=== PATIENT | female | born 1950 | race African-American/Black ===

== ENCOUNTER 2017-05-07 11:35 | Emergency (ER) | payer MEDICARE, BC, MEDICAID ==
[~2017-05-07] VITALS: Ht 165.1 cm; Wt 90.7 kg
[~2017-05-07 11:35] MED LIST: Blood Sugar Diagnostic IN; INSU100I19 SQ; INSU100V28 SQ; LEVO200T8 PO; LISI10TA59 PO; METO50TA16 PO
[2017-05-07] MEDS ORDERED: ONDANSETRON HCL/PF 4 MG/2 ML VIAL IVP ONE (12:30)
[2017-05-07] MEDS ORDERED: IV NS 0.9% 1,000 ML BAG IV ONE (12:30)
[2017-05-07 12:41] LABS: BASOPHILS % (AUTO) 0.7 % (0.0-2.0); EOSINOPHILS % (AUTO) 0.2 % (0.0-6.0); HEMATOCRIT 40 % (33-45); HEMOGLOBIN 13.9 g/dL (11.5-14.8); LYMPHOCYTES # (AUTO) 1.4 /CMM (0.8-4.8); LYMPHOCYTES % (AUTO) 21.3 % (20.0-44.0); MEAN CORPUSCULAR HEMOGLOBIN 30 PG (26.0-33.0); MEAN CORPUSCULAR HGB CONC 34 g/dl (31.0-36.0); MEAN CORPUSCULAR VOLUME 87 fL (82-100); MONOCYTES # (AUTO) 0.7 /CMM (0.1-1.30); NEUTROPHILS # (AUTO) 4.6 /CMM (1.8-8.9); NEUTROPHILS % (AUTO) 66.8 % (43.0-81.0); PLATELET COUNT (AUTO) 244 /CMM (150-450); RDW COEFFICIENT OF VARIATION 13.4 (11.5-15.0); RED BLOOD CELL COUNT(AUTO) 4.65 MIL/uL (4.0-5.2); WHITE BLOOD COUNT (AUTO) 6.7 K/uL (4.3-11.0)
[2017-05-07 12:56] LABS: ALANINE AMINOTRANSFERASE 25 U/L (12-78); ALKALINE PHOSPHATASE 128 U/L (46-116); ASPARTATE AMINOTRANSFERASE 20 U/L (15-37); BILIRUBIN,DIRECT 0.1 mg/dL (0.0-0.2); BILIRUBIN,TOTAL 0.5 mg/dL (0.2-1.0); CALCIUM, SERUM 9.3 mg/dL (8.5-10.1); CARBON DIOXIDE 27 mmol/L (21-32); CHLORIDE 100 mmol/L (98-107); CREATININE 1.1 mg/dL (0.6-1.3); LIPASE 186 U/L (73-393); POTASSIUM 3.7 mmol/L (3.5-5.1); SODIUM SERUM 136 mmol/L (136-145); TOTAL PROTEIN, SERUM 8.2 g/dL (6.4-8.2); UREA NITROGEN, BLOOD 18 mg/dL (7-18)
[2017-05-07 12:58] LABS: TROPONIN I < 0.017 ng/mL (0.00-0.056)
[2017-05-07 13:03] LABS: GLUCOSE 368 mg/dL (74-106)
--- NOTE | 2017-05-07 13:43 | NUR ---
ASSISTED TO ED BED 11 VIA WHEELCHAIR FROM THE WAITING ROOM
--- NOTE | 2017-05-07 13:45 | NUR ---
RECIEVED PT AT THIS TIME. PT WAS BB FAMILY: NAUSEA, VOMITING, DIARRHEA, ABD PAIN. NAD VSS RR EVEN AND UNLABORED. KEPT WARM AND COMFORTABLE. PT WAS SEEN AND EVLAUTED BY SONYA ESTRADA. BLOOD DRAWN WHILE PT WAS IN WR
[2017-05-07] MEDS ORDERED: ONDANSETRON HCL/PF 4 MG/2 ML VIAL ONE (13:47)
[2017-05-07] MEDS ORDERED: MORPHINE SULFATE INJ 2 MG/ML DISP.SYRIN IV ONE (14:00)
[2017-05-07] MEDS ORDERED: MORPHINE SULFATE INJ 4 MG/ML DISP.SYRIN ONE (14:07)
[2017-05-07 14:34] LABS: APPEARANCE,URINE Clear (CLEAR); BILIRUBIN,URINE SMALL (NEGATIVE); BLOOD, URINE Moderate Ery/uL (NEGATIVE); KETONES,URINE Trace (NEGATIVE); LEUKOCYTE ESTERASE ,URINE Negative (NEGATIVE); NITRITE, URINE Negative (NEGATIVE); PH,URINE 5.5 (5.0-8.0); PROTEIN,URINE 30 mg/dl (NEGATIVE); UGLUCOSE >=1000 mg/dL (NEGATIVE); UROBILINOGEN,URINE 0.2 EU/dL (0.2)
[2017-05-07 14:37] LABS: COLOR,URINE Dark Yellow (YELLOW)
[2017-05-07 14:53] LABS: BACTERIA,URINE Moderate /HPF (None Seen); RBC,URINE 0-3 /HPF (0-2); SQUAMOUS EPITHELIAL CELL,UR Few /HPF (None Seen); YEAST,URINE Few /HPF (None Seen)
[2017-05-07 16:11] VITALS: BP 139/89
--- NOTE | 2017-05-07 16:11 | NUR ---
Patient discharged to home in stable condition. Written and verbal after care instructions given. Patient verbalizes understanding of instruction.
== END 2017-05-07 16:13 | disposition home or self-care (01) ==
LOC: ER 11:37
DX: R11.2 Nausea with vomiting, unspecified (principal); R19.7 Diarrhea, unspecified; N28.89 Other specified disorders of kidney and ureter; R51 Headache; E11.9 Type 2 diabetes mellitus without complications; I10 Essential (primary) hypertension; M06.9 Rheumatoid arthritis, unspecified; Z79.4 Long term (current) use of insulin
CPT/HCPCS: 36415; 70450-TC; 80048-TC; 80076-TC; 81000-TC; 83690-TC; 84484-TC; 85025-TC; 87086-TC; A4606; J2270; J2405; J7030; Z7610

== ENCOUNTER 2018-05-03 19:20 | Emergency (ER) | payer MEDICARE, MEDICAID ==
[~2018-05-03] VITALS: Ht 165.1 cm; Wt 93.9 kg
--- NOTE | 2018-05-03 19:25 | NUR ---
PATIENT AMBULATORY TO ER BED 10 WITH FAMILY. BIBFAMILY FROM HOME C/O BLURRED VISION IN R EYE X 5 DAYS. DENIES HEAD TRAUMA. PT PLACED ON LATHE HAND. VSS/RESP EVEN UNLABORED/NAD NOTED/SKIN WARM AND DRY/AFEBRILE/DENIES N-V-D/AOX4. AWAITNG MD ARREDONDO.
--- NOTE | 2018-05-03 19:40 | NUR ---
AT BEDSIDE FOR EVAL.
--- NOTE | 2018-05-03 19:53 | NUR ---
PATIENT TO CT VIA STRETCHER. VSS.
--- NOTE | 2018-05-03 20:08 | NUR ---
PATIENT BACK FROM CT.
--- NOTE | 2018-05-03 20:44 | NUR ---
18G IV TO L AC X 1 ATTEMPT USING ASEPTIC TECH, BLOOD HANDED OVER TO THE LAB AT BEDSIDE. IV FLUSHES EASILY WITH NS, NO S/S INFILTRATION NOTED AT THIS TIME.
[2018-05-03 20:47] LABS: BASOPHILS # (AUTO) 0.1 /CMM (0.0-0.2); BASOPHILS % (AUTO) 1.1 % (0.0-2.0); EOSINOPHILS % (AUTO) 3.3 % (0.0-6.0); HEMATOCRIT 42 % (33-45); HEMOGLOBIN 13.9 g/dL (11.5-14.8); LYMPHOCYTES # (AUTO) 2.1 /CMM (0.8-4.8); LYMPHOCYTES % (AUTO) 26.4 % (20.0-44.0); MEAN CORPUSCULAR HGB CONC 33 g/dl (31.0-36.0); MEAN CORPUSCULAR VOLUME 89 fL (82-100); MONOCYTES # (AUTO) 0.5 /CMM (0.1-1.30); MONOCYTES % (AUTO) 6.5 % (2.0-12.0); NEUTROPHILS # (AUTO) 4.9 /CMM (1.8-8.9); NEUTROPHILS % (AUTO) 62.7 % (43.0-81.0); PLATELET COUNT (AUTO) 246 /CMM (150-450); RED BLOOD CELL COUNT(AUTO) 4.72 MIL/uL (4.0-5.2); WHITE BLOOD COUNT (AUTO) 7.8 K/uL (4.3-11.0)
--- NOTE | 2018-05-03 20:49 | NUR ---
PATIENT AMBULATORY TO RESTROOM WITH STEADY GAIT.
--- NOTE | 2018-05-03 20:51 | NUR ---
URINE SPECIMEN OBTAINED AND SENT TO THE LAB.
[2018-05-03] MEDS ORDERED: ONDANSETRON HCL/PF 4 MG/2 ML VIAL IV ONE (21:00)
[2018-05-03] MEDS ORDERED: MORPHINE SULFATE INJ 2 MG/ML DISP.SYRIN IV ONE (21:00)
[2018-05-03 21:03] LABS: CALCIUM, SERUM 9.5 mg/dL (8.5-10.1); CREATININE 1.2 mg/dL (0.6-1.3); POTASSIUM 3.7 mmol/L (3.5-5.1)
[2018-05-03] MEDS ORDERED: ONDANSETRON HCL/PF 4 MG/2 ML VIAL ONE (21:03)
[2018-05-03] MEDS ORDERED: MORPHINE SULFATE INJ 4 MG/ML DISP.SYRIN ONE (21:04)
[2018-05-03] MEDS ORDERED: IOHEXOL-350 100 ML VIAL IV ONE (21:18)
[2018-05-03] MEDS ORDERED: CT SWABBABLE VALVE TRANS SET 1 EA INFUS.SET MC ONE (21:18)
[2018-05-03] MEDS ORDERED: IV NS 0.9% 250 ML IV ONE (21:18)
--- NOTE | 2018-05-03 21:25 | NUR ---
PATIENT TO CT VIA STRETCHER, VSS.
--- NOTE | 2018-05-03 21:45 | NUR ---
PATIENT BACK FROM CT.
--- NOTE | 2018-05-03 22:30 | NUR ---
PATCH PLACED OVER R EYE PER MD ORDERS.
--- NOTE | 2018-05-03 23:41 | NUR ---
IV removed. Catheter intact and site benign. Pressure and 4x4 applied to site. No bleeding noted. Patient discharged to home in stable condition. Written and verbal after care instructions given. Patient verbalizes understanding of instruction. Patient ambulatory with a steady gait.
[2018-05-03 23:43] VITALS: BP 162/84
== END 2018-05-03 23:44 | disposition home or self-care (01) ==
LOC: ER 19:22
DX: H49.01 Third [oculomotor] nerve palsy, right eye (principal); I10 Essential (primary) hypertension; E11.9 Type 2 diabetes mellitus without complications; R51 Headache; Z79.4 Long term (current) use of insulin
CPT/HCPCS: 36415; 70450; 70480; 70496; 80048; 85025; 85730; 96374; 96375; 99284; A4606; J2270; J2405; J7050; Q9967

== ENCOUNTER 2022-09-27 22:53 | Inpatient (IN) | payer MEDICARE, OTHER ==
[~2022-09-27] VITALS: Ht 167.6 cm; Wt 88.5 kg
[~2022-09-27 22:53] MED LIST changes: +LISI10TA30 PO; -LISI10TA59 PO
--- NOTE | 2022-09-27 23:21 | NUR ---
BIBDAUGHTER FROM HOME C/O N/V, WEAKNESS, CONFUSION X1 DAY. BG 400 AT HOME. PT AAOX4, BUT SLOW TO ANSWER. VITALS CHECKED. DTR AT BEDSIDE.
[2022-09-27] MEDS ORDERED: ONDANSETRON HCL/PF 4 MG/2 ML VIAL IVP ONE (23:30)
[2022-09-27] MEDS ORDERED: IV NS 0.9% 1,000 ML BAG IV ONE (23:30)
[2022-09-27] MEDS ORDERED: INSULIN REGULAR, HUMAN 100 UNIT/ML 10 ML VIAL IV ONE (23:30)
[2022-09-27] MEDS ORDERED: IV NS 0.9% 500 ML BAG IV ONE (23:30)
[2022-09-27] MEDS ORDERED: ONDANSETRON HCL/PF 4 MG/2 ML VIAL ONE (23:33)
--- NOTE | 2022-09-27 23:33 | NUR ---
20GA LEFT AC ESTABLISHED Addendum: 09/28/22 at 0011 by YEE 20GA LEFT HAND ESTABLISHED
--- NOTE | 2022-09-27 23:35 | NUR ---
BLOOD COLLECTED, SENT TO LAB
--- NOTE | 2022-09-27 23:35 | NUR ---
EKG DONE AT BEDSIDE
--- NOTE | 2022-09-27 23:36 | NUR ---
NAUSEA & VOMITING X2 WITH BROWN-COLORED EMESIS
--- NOTE | 2022-09-27 23:38 | NUR ---
XR AT BEDSIDE
--- NOTE | 2022-09-27 23:45 | NUR ---
URINE COLLECTED, SENT TO LAB
[2022-09-27 23:54] LABS: BASOPHILS # (AUTO) 0.1 K/uL (0.0-0.2); BASOPHILS % (AUTO) 0.3 % (0.0-2.0); HEMATOCRIT 39 % (33-45); HEMOGLOBIN 12.1 g/dL (11.5-14.8); LYMPHOCYTES # (AUTO) 1.3 K/uL (0.8-4.8); LYMPHOCYTES % (AUTO) 6.6 % (20.0-44.0); MEAN CORPUSCULAR HGB CONC 31 g/dl (31.0-36.0); MEAN CORPUSCULAR VOLUME 96 fL (82-100); MONOCYTES # (AUTO) 0.8 K/uL (0.1-1.30); MONOCYTES % (AUTO) 4.1 % (2.0-12.0); NEUTROPHILS # (AUTO) 18.3 K/uL (1.8-8.9); PLATELET COUNT (AUTO) 337 K/uL (150-450); RED BLOOD CELL COUNT(AUTO) 4.13 MIL/uL (4.0-5.2); WHITE BLOOD COUNT (AUTO) 20.5 K/uL (4.3-11.0)
[2022-09-28] VITALS (17 sets, daily range): BP systolic 97–171; BP diastolic 39–143
[2022-09-28 00:01] LABS: ALANINE AMINOTRANSFERASE 19 U/L (12-78); ALBUMIN 3.4 g/dL (3.4-5.0); ALKALINE PHOSPHATASE 153 U/L (46-116); ASPARTATE AMINOTRANSFERASE 6 U/L (15-37); BILIRUBIN,DIRECT 0.2 mg/dL (0.0-0.2); BILIRUBIN,TOTAL 0.8 mg/dL (0.2-1.0); CALCIUM, SERUM 10.3 mg/dL (8.5-10.1); CARBON DIOXIDE 21 mmol/L (21-32); CHLORIDE 85 mmol/L (98-107); CREATININE 2.9 mg/dL (0.6-1.3); POTASSIUM 4.5 mmol/L (3.5-5.1); SODIUM SERUM 133 mmol/L (136-145); TOTAL PROTEIN, SERUM 8.7 g/dL (6.4-8.2); UREA NITROGEN, BLOOD 72 mg/dL (7-18)
[2022-09-28 00:03] LABS: GLUCOSE 1146 mg/dL (74-106)
--- NOTE | 2022-09-28 00:03 | NUR ---
CRITICAL LAB: SERUM GLUCOSE [id number]. NOTIFIED.
--- NOTE | 2022-09-28 00:08 | NUR ---
ASUNCION/ALEXIS [phone]
[2022-09-28] MEDS ORDERED: IV NS 0.9% 1,000 ML BAG IV ONE (00:30)
[2022-09-28 00:43] LABS: BILIRUBIN,URINE 1+ (NEGATIVE); COLOR,URINE YELLOW (YELLOW); LEUKOCYTE ESTERASE ,URINE NEGATIVE (NEGATIVE); NITRITE, URINE NEGATIVE (NEGATIVE); PH,URINE 5.5 (5.0-8.0); PROTEIN,URINE NEGATIVE (NEGATIVE); UGLUCOSE 3+ mg/dL (NEGATIVE); UROBILINOGEN,URINE 0.2 EU/dL (0.2)
--- NOTE | 2022-09-28 00:45 | NUR ---
RT AT BEDSIDE FOR ABG
[2022-09-28] MEDS ORDERED: INSULIN REGULAR, HUMAN 100 UNIT/ML 10 ML VIAL ONE (00:47)
[2022-09-28 00:55] LABS: ABG BASE EXCESS -11.1 mmol/L; ABG PCO2 43.7 mmHg (35.0-45.0); ABG PH 7.197 (7.350-7.450); ABG PO2 83.5 mmHg (75.0-100.0); COHb 0.1 % (0.5-1.5); MetHb 0.4 % (0.0-1.5); O2Hb 93.5 % (94.0-97.0); SITE, ABG Right Radial; VENT MODE, BG 2 LNC
--- NOTE | 2022-09-28 00:59 | NUR ---
COVID SWAB COLLECTED, SENT TO LAB
[2022-09-28] MEDS ORDERED: INSULIN REGULAR, HUMAN 100 UNIT in IV NS 0.9% 99 ML IV PRN ×4 (01:00→02:30)
--- NOTE | 2022-09-28 01:05 | NUR ---
INSULIN GTT INITIATED AT RATE OF 5 UNITS/HR
[2022-09-28] MEDS ORDERED: MAG HYDROX/AL HYDROX/SIMETH 30 ML UDC PO PRN (02:30)
[2022-09-28] MEDS ORDERED: Z GUARD REMEDY 4 OZ OINT TP PRN (02:30)
[2022-09-28] MEDS ORDERED: ACETAMINOPHEN 325 MG TABLET PO PRN (02:30)
[2022-09-28] MEDS ORDERED: IV NS 0.9% 1,000 ML IV PRN (02:30)
[2022-09-28] MEDS ORDERED: hydrALAZINE HCL IV 20 MG VIAL IV PRN (02:30)
[2022-09-28] MEDS ORDERED: ONDANSETRON HCL/PF 4 MG/2 ML VIAL IVP PRN (02:30)
[2022-09-28 02:31] LABS: BACTERIA,URINE Rare /HPF (None Seen); RBC,URINE 0-2 /HPF (0-2); SQUAMOUS EPITHELIAL CELL,UR Few /HPF (None Seen); WBC,URINE 0-2 /HPF (0-3)
[2022-09-28 02:54] LABS: BASOPHILS % (MANUAL) 0 % (0.0-2.0); EOSINOPHILS % (MANUAL) 0 % (0-4); LYMPHOCYTES % (MANUAL) 9 % (16-48); MONOCYTES % (MANUAL) 5 % (0-11.0); NEUTROPHILS % (MANUAL) 86 (42-76)
--- NOTE | 2022-09-28 03:00 | NUR ---
INSULIN GTT ADJUSTED TO 6 UNITS/HR PER ALGORITHM #1.
--- NOTE | 2022-09-28 04:01 | NUR ---
TOEING STOCKINGS AT PT'S BEDSIDE
[2022-09-28 04:23] LABS: BASOPHILS # (AUTO) 0.1 K/uL (0.0-0.2); BASOPHILS % (AUTO) 0.2 % (0.0-2.0); HEMATOCRIT 38 % (33-45); HEMOGLOBIN 12.1 g/dL (11.5-14.8); LYMPHOCYTES # (AUTO) 1.6 K/uL (0.8-4.8); LYMPHOCYTES % (AUTO) 6.5 % (20.0-44.0); MEAN CORPUSCULAR HGB CONC 32 g/dl (31.0-36.0); MEAN CORPUSCULAR VOLUME 92 fL (82-100); MONOCYTES # (AUTO) 1.1 K/uL (0.1-1.30); MONOCYTES % (AUTO) 4.5 % (2.0-12.0); NEUTROPHILS # (AUTO) 22.4 K/uL (1.8-8.9); NEUTROPHILS % (AUTO) 88.8 % (43.0-81.0); PLATELET COUNT (AUTO) 308 K/uL (150-450); RED BLOOD CELL COUNT(AUTO) 4.11 MIL/uL (4.0-5.2); WHITE BLOOD COUNT (AUTO) 25.2 K/uL (4.3-11.0)
[2022-09-28 04:40] LABS: CREATININE 2.4 mg/dL (0.6-1.3); MAGNESIUM 2.3 mg/dL (1.8-2.4); PHOSPHORUS 4.4 mg/dL (2.5-4.9); POTASSIUM 4.2 mmol/L (3.5-5.1)
--- NOTE | 2022-09-28 04:42 | NUR ---
GLUCOSE 754 REPORTED BY LAB. VICTORINO RAY
[2022-09-28 05:08] LABS: THYROID STIMULATING HORMONE 0.406 uIU/mL (0.358-3.74)
--- NOTE | 2022-09-28 05:26 | NUR ---
EWEL=[id number]
--- NOTE | 2022-09-28 06:00 | NUR ---
2ND PERIPHERAL IV ESTABLISHED: 18GA LEFT AC
--- NOTE | 2022-09-28 06:12 | NUR ---
RQQD=[id number]
--- NOTE | 2022-09-28 07:39 | NUR ---
BG 427. MADE AWARE
--- NOTE | 2022-09-28 08:00 | NUR ---
room assigned. going to 261. admitting aware.
--- NOTE | 2022-09-28 08:15 | NUR ---
ROOM 256
--- NOTE | 2022-09-28 08:58 | NUR ---
PT ARRIVED IN ICU TO ROOM 256. PT LETHARGIC YET FOLLOWS COMMANDS. PT ON INSULIN GTT, DKA PROTOCOL. PT ON ROOM AIR AT THIS TIME. PT WAS ABLE TO MOVE FROM GURNEY TO BED BY SELF WITHOUT DIFFICULTY. PT CHECKED ON HOURLY AND PRN BY NURSING STAFF.
[2022-09-28] MEDS ORDERED: AMLODIPINE BESYLATE 10 MG TABLET PO SCH (09:00)
--- NOTE | 2022-09-28 09:11 | NUR ---
INSULIN RUNNING AT 5UNITS/HOUR ENDORSED TO ICU NURSE TO BE TITRATED PER PROTOCOL.
--- NOTE | 2022-09-28 09:12 | NUR ---
MOVED TO ICU ROOM SAFELY PER ACLS PROTOCOL
[2022-09-28 09:48] LABS: CALCIUM, SERUM 9.8 mg/dL (8.5-10.1); CREATININE 2.2 mg/dL (0.6-1.3); POTASSIUM 3.9 mmol/L (3.5-5.1)
[2022-09-28] MEDS ORDERED: METH2.5T14 PO (10:03)
[2022-09-28] MEDS ORDERED: HYDR25TA4 PO (10:03)
[2022-09-28] MEDS ORDERED: AMLO-213 PO (10:03)
[2022-09-28] MEDS ORDERED: INSU100V7 SQ (10:03)
[2022-09-28] MEDS ORDERED: LOSA100T31 PO (10:03)
[2022-09-28] MEDS ORDERED: OXYC15TA2 PO (10:03)
[2022-09-28] MEDS ORDERED: INSU100I14 SQ (10:03)
[2022-09-28] MEDS ORDERED: CETI10TA14 PO (10:03)
[2022-09-28] MEDS ORDERED: FOLI0.4T6 PO (10:03)
[2022-09-28] MEDS ORDERED: GABA600T12 PO (10:03)
[2022-09-28] MEDS: LEVOTHYROXINE SODIUM 125 MCG TABLET PO SCH (10:59)
[2022-09-28] MEDS: PANTOPRAZOLE 40 MG VIAL IV SCH (11:00)
[2022-09-28] MEDS: BLOOD SUGAR DIAGNOSTIC 1 EACH STRIP IN SCH ×5 (11:00→14:53)
[2022-09-28] MEDS: HEPARIN SODIUM, PORCINE 5000 UNITS/1 ML VIAL SQ SCH ×2 (11:04→20:49)
[2022-09-28] MEDS: IV NS 0.9% 1,000 ML IV PRN ×2 (11:24→14:53)
[2022-09-28] MEDS ORDERED: oxyCODONE IR immediate release 5 MG PO PRN (11:30)
[2022-09-28] MEDS: GABAPENTIN 300 MG CAPSULE PO SCH ×2 (12:40→17:31)
[2022-09-28 13:13] LABS: CALCIUM, SERUM 9.8 mg/dL (8.5-10.1); CREATININE 2.1 mg/dL (0.6-1.3); POTASSIUM 3.7 mmol/L (3.5-5.1)
[2022-09-28] MEDS ORDERED: DEXTROSE 50%-WATER 50 ML DISP.SYRIN IV PRN (15:30)
[2022-09-28] MEDS: BLOOD SUGAR DIAGNOSTIC 1 EACH STRIP VI SCH ×2 (17:28→22:06)
[2022-09-28] MEDS: IV 1/2NS 1000 ML 1,000 ML IV PRN (17:29)
[2022-09-28] MEDS: INSULIN REGULAR, HUMAN 100 UNIT/ML 3 ML VIAL SQ PRN (17:33)
--- NOTE | 2022-09-28 19:16 | NUR ---
END OF SHIFT NOTE: ANION GAP CLOSED TODAY, INSULIN GTT DC'D PER MD ORDERS. PT IS LETHARGIC BUT FOLLOWS COMMANDS. PT IS 1-2 ASSIST TO BEDSIDE COMMODE. PT CHECKED ON HOURLY AND PRN BY NURSING STAFF.
--- NOTE | 2022-09-28 20:36 | NUR ---
ELECTROPHONIC ENGINEER PT REMOVED NASAL CANNUALA; NOTED SATURATION TO 87-88%; EDUCATED PT ON THE NEED TO LEAVE NASAL CANNULA ON.
[2022-09-28] MEDS ORDERED: ZOLPIDEM TARTRATE 5 MG TABLET PO PRN (22:00)
[2022-09-28] MEDS ORDERED: MAGNESIUM HYDROXIDE 30 ML UDC PO PRN (22:00)
[2022-09-28] MEDS: *INSULIN REGULAR(HUMULIN R)HUM 100 UNIT/ML VIAL SQ PRN (22:09)
[2022-09-28] MEDS: INSULIN GLARGINE, 100 UNIT/ML CARTRIDGE SQ SCH (22:11)
--- NOTE | 2022-09-28 23:13 | NUR ---
OFFICE MESSENGER HELPER UPDATE GIVEN TO DAUGHTER ALEXIS.
[2022-09-29] VITALS (20 sets, daily range): BP systolic 100–158; BP diastolic 47–106
[2022-09-29] MEDS: IV 1/2NS 1000 ML 1,000 ML IV PRN ×2 (03:10→15:59)
[2022-09-29 05:41] LABS: BASOPHILS # (AUTO) 0.1 K/uL (0.0-0.2); BASOPHILS % (AUTO) 0.3 % (0.0-2.0); HEMATOCRIT 35 % (33-45); HEMOGLOBIN 11.5 g/dL (11.5-14.8); LYMPHOCYTES # (AUTO) 1.9 K/uL (0.8-4.8); LYMPHOCYTES % (AUTO) 8.5 % (20.0-44.0); MEAN CORPUSCULAR HGB CONC 33 g/dl (31.0-36.0); MEAN CORPUSCULAR VOLUME 90 fL (82-100); MONOCYTES # (AUTO) 1.2 K/uL (0.1-1.30); MONOCYTES % (AUTO) 5.5 % (2.0-12.0); NEUTROPHILS # (AUTO) 19.1 K/uL (1.8-8.9); NEUTROPHILS % (AUTO) 85.7 % (43.0-81.0); PLATELET COUNT (AUTO) 269 K/uL (150-450); WHITE BLOOD COUNT (AUTO) 22.3 K/uL (4.3-11.0)
[2022-09-29 05:49] LABS: CALCIUM, SERUM 9.3 mg/dL (8.5-10.1); CREATININE 1.7 mg/dL (0.6-1.3); MAGNESIUM 2.2 mg/dL (1.8-2.4); PHOSPHORUS 2.1 mg/dL (2.5-4.9); POTASSIUM 3.6 mmol/L (3.5-5.1)
[2022-09-29] MEDS ORDERED: LEVOTHYROXINE SODIUM 125 MCG PO SCH (07:30)
[2022-09-29] MEDS: LEVOTHYROXINE SODIUM 125 MCG TABLET PO SCH (07:58)
[2022-09-29] MEDS: BLOOD SUGAR DIAGNOSTIC 1 EACH STRIP VI SCH ×4 (07:58→21:13)
[2022-09-29] MEDS: PANTOPRAZOLE 40 MG VIAL IV SCH (08:25)
[2022-09-29] MEDS: AMLODIPINE BESYLATE 10 MG TABLET PO SCH (08:26)
[2022-09-29] MEDS: GABAPENTIN 300 MG CAPSULE PO SCH ×3 (08:26→17:47)
[2022-09-29] MEDS: HEPARIN SODIUM, PORCINE 5000 UNITS/1 ML VIAL SQ SCH ×2 (08:27→20:52)
[2022-09-29] MEDS: INSULIN REGULAR, HUMAN 100 UNIT/ML 3 ML VIAL SQ PRN ×3 (08:30→17:48)
[2022-09-29] MEDS: POTASSIUM PHOSPHATE MM 7.5 MMOL in IV NS 0.9% 100 ML IV SCH ×2 (09:14→12:23)
[2022-09-29] MEDS: CEFTRIAXONE 1 G in IV D5W 50 ML IV SCH (11:09)
[2022-09-29] MEDS: MENTHOL/CETYLPYRD (CEPACOL) 1 LOZ LOZENGE PO PRN ×2 (14:53→18:21)
--- NOTE | 2022-09-29 19:00 | NUR ---
RN notes: pt transferred to med surg unit room 313-1 in stable condition, iv running 1/2 ns at 100 ml/hr, continue on O2 at 2 l/min, denies SOB, report given to Mariana TIMMONS, called daughter Alejandra updated her about pt condition and transfer
--- NOTE | 2022-09-29 19:30 | NUR ---
MS AGED OR DISABLED CARE WORKER NOTE RECEIVED REPORT FROM OUTGOING RN HAILEY. PATIENT TRANSFERRED FROM ICU AND ARRIVED TO THE UNIT AT AROUND 1900 VIA STRETCHER, ACCOMPANIED BY 2 ICU NURSE. PATIENT IS ALERT AND ORIENTED X4 BUT SLIGHTLY LETHARGIC. ABLE TO MAKE NEEDS KNOWN. AFEBRILE AND NOT IN ANY FORM OF ACUTE DISTRESS. ON O2 INHALATION VIA NASAL CANNULA AT 2LPM. EXPLAINED ADMISSION PROCESS WHICH INCLUDES SKIN ASSESSMENT AND BELONGINGS CHECKED WHICH THE PATIENT AGREED. SKIN IS INTACT. WITH IV ACCESS ON LAC 18G RUNNING WITH 1/2NS AT 100ML/HR. SAFETY MEASURES IN PLACE. KEPT BED IN LOCKED AND IN LOW POSITION. SIDE RAILS UP X2. ADVISED TO USE THE CALL LIGHT WHEN IN NEED OF ASSISTANCE.
[2022-09-29] MEDS: INSULIN GLARGINE, 100 UNIT/ML CARTRIDGE SQ SCH (21:17)
[2022-09-29] MEDS: *INSULIN REGULAR(HUMULIN R)HUM 100 UNIT/ML VIAL SQ PRN (21:19)
[2022-09-30] MEDS: IV 1/2NS 1000 ML 1,000 ML IV PRN ×2 (01:35→16:15)
[2022-09-30] MEDS: INSULIN REGULAR, HUMAN 100 UNIT/ML 3 ML VIAL SQ PRN ×3 (06:01→17:07)
--- NOTE | 2022-09-30 06:15 | NUR ---
MS RN NOTE CHECKED PATIENT'S BG 448. ADMINISTERED INSULIN PER SLIDING SCALE. CN NOTIFIED. WILL RECHECKED AFTER HALF AN HOUR. PATIENT REMAINS ALERT AND ORIENTED AND NOT IN ANY FORM OF ACUTE DISTRESS. PATIENT REFUSED TO HAVE DINNER LAST NIGHT BUT ASKED FOR SNACKS AT AROUND 0400.
--- NOTE | 2022-09-30 06:40 | NUR ---
MS RN CLOSING NOTE PATIENT IN BED, WITH HOB ELEVATED, AWAKE, ALERT AND ORIENTED X4. MORE ALERT THAN LAST NIGHT. ABLE TO MAKE NEEDS KNOWN. AFEBRILE AND NOT IN ANY FORM OF ACUTE DISTRESS. ON O2 INHALATION VIA NASAL CANNULA AT 2LPM. WITH IV ACCESS ON LAC 18G RUNNING WITH 1/2NS AT 100ML/HR. MONITORED FOR ANY S/SX. OF HYPO/HYPERGLYCEMIA. MEDICATED ORDERED. OFFERED AND ENCOURAGED FLUIDS TOLERATED. SAFETY MEASURES IN PLACE. KEPT BED IN LOCKED AND IN LOW POSITION. SIDE RAILS UP X2. ADVISED TO USE THE CALL LIGHT WHEN IN NEED OF ASSISTANCE. ALL NURSING NEEDS ATTENDED. ENDORSED TO INCOMING SHIFT FOR CONTINUITY OF CARE.
[2022-09-30] MEDS: BLOOD SUGAR DIAGNOSTIC 1 EACH STRIP VI SCH ×4 (06:53→22:07)
[2022-09-30 06:56] LABS: BASOPHILS % (AUTO) 0.4 % (0.0-2.0); EOSINOPHILS % (AUTO) 0.5 % (0.0-6.0); HEMATOCRIT 34 % (33-45); LYMPHOCYTES # (AUTO) 1.5 K/uL (0.8-4.8); LYMPHOCYTES % (AUTO) 21.1 % (20.0-44.0); MEAN CORPUSCULAR HGB CONC 33 g/dl (31.0-36.0); MEAN CORPUSCULAR VOLUME 94 fL (82-100); MONOCYTES # (AUTO) 0.6 K/uL (0.1-1.30); MONOCYTES % (AUTO) 8.7 % (2.0-12.0); NEUTROPHILS % (AUTO) 69.3 % (43.0-81.0); PLATELET COUNT (AUTO) 209 K/uL (150-450); RED BLOOD CELL COUNT(AUTO) 3.61 MIL/uL (4.0-5.2); WHITE BLOOD COUNT (AUTO) 7.2 K/uL (4.3-11.0)
--- NOTE | 2022-09-30 06:56 | NUR ---
MS RN NOTE RECHECKED BG AFTER 30 MINS- 410. CN NOTIFIED ABOUT THE LATEST BG LEVEL AND INFORMED THAT 15 UNITS OF REGULAR INSULIN WAS GIVEN PER SLIDING SCALE. PATIENT REMAINS ASYMPTOMATIC AND ALERT. ABLE TO ANSWER QUESTIONS CORRECTLY. ENDORSED TO INCOMING NURSE FOR CONTINUITY OF CARE.
--- NOTE | 2022-09-30 07:30 | NUR ---
MS RN NOTE RECHECKED BG AGAIN AND IT WENT DOWN TO 390. ENDORSED TO NURSE ESTRELLA FOR CONTINUITY OF CARE. PATIENT REMAINS ASYMPTOMATIC AND ALERT.
--- NOTE | 2022-09-30 07:35 | NUR ---
OPENING NOTE PATIENT IS AWAKE A/Ox4 ON 2L VIA NC WITH NO S/S OF SOB OR DISTRESS. IV ACCESS LAC G18 AND L HAND 20G INTACT PATIENT, FLUSHING WELL. PATIENT SKIN IS INTACT AND NO EDEMA PRESENT AT THIS TIME. CLEAR BILATERAL LUNG SOUNDS AND ACTIVE BOWEL SOUNDS, NO ABDOMINAL TENDERNESS. BG FOLLOW UP WAS DONE BY BASEBALL PLAYER NURSE, TRENDING DOWN 390/BG. PATIENT HAS NO PAIN. FALL AND SAFETY PRECAUTION IN PLACE, BED LOCKED AND AT THE LOWEST POSITION, SRx2, CALL LIGHT WITHIN REACH.
[2022-09-30 08:31] VITALS: BP 135/76
[2022-09-30] MEDS: HEPARIN SODIUM, PORCINE 5000 UNITS/1 ML VIAL SQ SCH ×2 (08:40→21:16)
[2022-09-30] MEDS: LEVOTHYROXINE SODIUM 125 MCG TABLET PO SCH (08:43)
[2022-09-30] MEDS: GABAPENTIN 300 MG CAPSULE PO SCH ×3 (08:43→16:37)
[2022-09-30] MEDS: AMLODIPINE BESYLATE 10 MG TABLET PO SCH (08:45)
[2022-09-30] MEDS: PANTOPRAZOLE 40 MG TABLET.DR PO SCH (08:46)
[2022-09-30 09:35] LABS: CALCIUM, SERUM 8.9 mg/dL (8.5-10.1); CREATININE 1.5 mg/dL (0.6-1.3); POTASSIUM 3.6 mmol/L (3.5-5.1)
[2022-09-30 09:48] LABS: MAGNESIUM 2.2 mg/dL (1.8-2.4); PHOSPHORUS 1.6 mg/dL (2.5-4.9)
--- NOTE | 2022-09-30 09:54 | NUR ---
CRITICAL LAB CRITICAL LAB REPORTED BY SHALINI, FROM LAB. GB 366. CRITICAL LAB REPORTED TO DR. VILLALOBOS.
[2022-09-30] MEDS: CEFTRIAXONE 1 G in IV D5W 50 ML IV SCH (10:43)
[2022-09-30] MEDS: POTASSIUM PHOSPHATE MM 7.5 MMOL in IV NS 0.9% 100 ML IV SCH ×2 (12:48→16:39)
--- NOTE | 2022-09-30 12:51 | NUR ---
MEDICATION NOTE LATE POTASSIUM PHOSPHATE ADMINISTRATION, LATE DELIVERY.
[2022-09-30 15:58] VITALS: BP 127/69
--- NOTE | 2022-09-30 16:42 | NUR ---
MEDICATION NOTE POTASSIUM PHOSPHATE PRIOR ADMINISTRATION RUNNING LATE, CAUSING THE 2 BAG TO BE ADMINISTERED LATE. GAVE SECOND BAG ONCE FIRST BAG WAS DONE INFUSING.
--- NOTE | 2022-09-30 19:04 | NUR ---
CLOSING NOTE PATIENT IS AWAKE, IN BED RESTING A/Ox3 ON 2L VIA NC WITH NO S/S OF SOB OR DISTRESS. IV ACCESS LAC G18 REMOVED PER PATIENT / FAMILY REQUEST. L HAND 20G REMAIN INTACT PATIENT, FLUSHING WELL. PATIENT HAS NO PAIN. MEDICATION ADMINISTERED ORDERED/ PER PATIENT STATUS. PATIENT VOIDED X3, 1 BM, DURING SHIFT. PATIENT DAUGHTER REQUESTED TO SPEAK TO DR. DIXON NUMBER WAS GIVEN. DAUGHTER EXPRESSING CONCERNS ABOUT PATIENT MEMORY. PATIENT HAD EPISODE OF CONFUSING DURING SHIFT, NEEDED RE-ORIENTATION AFTER A 2 HR NAP. DISCUSSED WITH CHARGE NURSE. PATIENT REMAINS STABLE AT THIS TIME. FALL AND SAFETY PRECAUTION MAINTAINED, BED LOCKED AND AT THE LOWEST POSITION, SRx2, CALL LIGHT WITHIN REACH.
--- NOTE | 2022-09-30 19:20 | NUR ---
MSRN DAUGHTER AT BEDSIDE, FULLY AWAKE, SLIGHTLY NAUSEATED. TRYING TO EAT FOOD BROUGHT BY DAUGHTER. INSTRUCTED TO HOLD FOOD FOR NOW IF CONTINOUSLY NAUSEATED. PRESENT IVF INFUSING WELL VIA LEFT FA 20 GAUGE. TO CONTINUE
[2022-09-30 20:00] VITALS: BP 144/67
--- NOTE | 2022-09-30 20:27 | NUR ---
MSRN ASSISTED TO BSC, VOIDED FREELY. NO SOB. 02 MAINTAINED. NO N/V. TOLERATE FOOD BROUGHT BY DAUGHTER. KEPT COMFORTABLE.
[2022-09-30] MEDS: INSULIN GLARGINE, 100 UNIT/ML CARTRIDGE SQ SCH (22:27)
[2022-09-30] MEDS: *INSULIN REGULAR(HUMULIN R)HUM 100 UNIT/ML VIAL SQ PRN (22:31)
--- NOTE | 2022-10-01 06:00 | NUR ---
MSRN GOOD URINE OUTPUT, 1,500 CC. PRESENT IVF CONTINUED.
[2022-10-01 06:24] LABS: BASOPHILS % (AUTO) 0.4 % (0.0-2.0); EOSINOPHILS % (AUTO) 1.2 % (0.0-6.0); HEMATOCRIT 34 % (33-45); HEMOGLOBIN 11.3 g/dL (11.5-14.8); LYMPHOCYTES # (AUTO) 1.8 K/uL (0.8-4.8); LYMPHOCYTES % (AUTO) 25.4 % (20.0-44.0); MEAN CORPUSCULAR HGB CONC 34 g/dl (31.0-36.0); MEAN CORPUSCULAR VOLUME 90 fL (82-100); MONOCYTES # (AUTO) 0.7 K/uL (0.1-1.30); MONOCYTES % (AUTO) 9.9 % (2.0-12.0); NEUTROPHILS # (AUTO) 4.4 K/uL (1.8-8.9); NEUTROPHILS % (AUTO) 63.1 % (43.0-81.0); PLATELET COUNT (AUTO) 201 K/uL (150-450); RED BLOOD CELL COUNT(AUTO) 3.72 MIL/uL (4.0-5.2)
[2022-10-01 06:31] LABS: CALCIUM, SERUM 8.7 mg/dL (8.5-10.1); POTASSIUM 3.7 mmol/L (3.5-5.1)
[2022-10-01 06:34] LABS: MAGNESIUM 1.9 mg/dL (1.8-2.4); PHOSPHORUS 1.8 mg/dL (2.5-4.9)
[2022-10-01] MEDS: BLOOD SUGAR DIAGNOSTIC 1 EACH STRIP VI SCH ×2 (06:35→12:41)
[2022-10-01] MEDS: MENTHOL/CETYLPYRD (CEPACOL) 1 LOZ LOZENGE PO PRN (06:35)
[2022-10-01] MEDS: IV 1/2NS 1000 ML 1,000 ML IV PRN (06:35)
--- NOTE | 2022-10-01 06:45 | NUR ---
MSRN SORETHROAT, CEPACOL GIVEN. BS TODAY 190. STATED FELT BETTER THIS TIME.
--- NOTE | 2022-10-01 07:44 | NUR ---
MS RN OPENING NOTE Patient in bed, awake. A/O x 3, able to make needs known. On O2 at 2 LPM via NC, no SOB or s/s of distress noted. IV access on LFA #20 infusing 1/2 NS at 100 ml/hr. Patient denies any pain or discomfort at this time. Safety precautions in place: bed in low, locked position; siderails up x 2; call light within reach. Will continue to monitor.
[2022-10-01 08:00] VITALS: BP 139/75
[2022-10-01 08:12] VITALS: BP 139/75
[2022-10-01] MEDS: GABAPENTIN 300 MG CAPSULE PO SCH ×2 (08:12→12:37)
[2022-10-01] MEDS: PANTOPRAZOLE 40 MG TABLET.DR PO SCH (08:12)
[2022-10-01] MEDS: AMLODIPINE BESYLATE 10 MG TABLET PO SCH (08:12)
[2022-10-01] MEDS: LEVOTHYROXINE SODIUM 125 MCG TABLET PO SCH (08:12)
[2022-10-01] MEDS: HEPARIN SODIUM, PORCINE 5000 UNITS/1 ML VIAL SQ SCH (08:14)
[2022-10-01] MEDS: CEFTRIAXONE 1 G in IV D5W 50 ML IV SCH (11:23)
[2022-10-01] MEDS: INSULIN REGULAR, HUMAN 100 UNIT/ML 3 ML VIAL SQ PRN (12:40)
[2022-10-01] MEDS ORDERED: K PHOS NEUTRAL 250 MG TABLET PO ONE (16:00)
--- NOTE | 2022-10-01 16:00 | NUR ---
RECIEVED ORDER FOR DISCHARGE. PATIENT IS A/O X4, ABLE TO MAKE NEEDS KNOWN. STABLE ON ROOM AIR, NO SOB OR RESPIRATORY DISTRESS NOTED. DISCHRAGE INSTRUCTIONS GIVEN, PATIENT VERBALIZED UNDERSTANDING, ALL BELONGINGS ACCOUNTED FOR, BELONGING SHEET SIGNED. IV ACCESS REMOVED, CATHETER TIP INTACT, PRESSURE DRESSING APPLIED. EXITCARE FOLDER GIVEN TO PATIENT. PATIENT LEFT IN STABLE CONDITION, WHEELED PATIENT TO EXIT VIA WHEELCHAIR. PATIENT LEFT WITH HER DAUGHTER VIA PRIVATE CAR.
--- NOTE | 2022-10-01 16:01 | NUR ---
RN NOTE PT HAS TO RECIVE OXYCODONE IR 5MG TO GIVE 15 MG. TOOK ONLY 1 TAB INSTEAD OF 3 TABS. VERIFIED PHARMACY. PER PHARMACY, RETURN THE TABLET AND TAKE 3 TABS. WITNESSED BY SAMEER MONTEZ
== END 2022-10-01 17:01 | disposition home health service (06) | DRG 637 ==
LOC: ER 22:55 → ICU 09-28 08:11 → MED 09-29 19:08
PROVIDERS: ADMIT Nurse Practitioner Acute Care
DX: E11.10 Type 2 diabetes mellitus with ketoacidosis without coma (principal); G92.8 Other toxic encephalopathy; N17.0 Acute kidney failure with tubular necrosis; E87.1 Hypo-osmolality and hyponatremia; E87.0 Hyperosmolality and hypernatremia; J02.9 Acute pharyngitis, unspecified; E03.9 Hypothyroidism, unspecified; E83.39 Other disorders of phosphorus metabolism; E86.1 Hypovolemia; I10 Essential (primary) hypertension; Z20.822 Contact with and (suspected) exposure to COVID-19; Z79.4 Long term (current) use of insulin; Z79.899 Other long term (current) drug therapy; M06.9 Rheumatoid arthritis, unspecified; E11.40 Type 2 diabetes mellitus with diabetic neuropathy, unspecified; Z80.9 Family history of malignant neoplasm, unspecified; Z82.49 Family history of ischemic heart disease and other diseases of the circulatory system; Z87.891 Personal history of nicotine dependence; E66.9 Obesity, unspecified; D72.829 Elevated white blood cell count, unspecified; Z68.33 Body mass index [BMI] 33.0-33.9, adult; N28.1 Cyst of kidney, acquired
CPT/HCPCS: 36415; 36600; 71045-TC; 76770-TC; 80048-TC; 80061-TC; 80076-TC; 81001; 82010-TC; 82803-TC; 82962-TC; 83735-TC; 84100-TC; 84443-TC; 84484-TC; 85025-TC; 85730-TC; 87081-TC; 97116-TC; 97530-TC; A4223; C9113; C9803; G0378; J0360; J0696; J1644; J1815; J2405; J3490; J7030; J7050; J7060

== ENCOUNTER 2023-04-01 02:20 | Inpatient (IN) | payer MEDICARE, OTHER ==
[2023-04-01] VITALS (9 sets, daily range): BP systolic 144–197; BP diastolic 80–106; TEMP 97.4–99.1; O2SAT 94–100
[~2023-04-01] VITALS: Ht 167.6 cm; Wt 78.0 kg
[~2023-04-01 02:20] MED LIST changes: +AMLO-213 PO; -Blood Sugar Diagnostic IN; +CETI10TA14 PO; +FOLI0.4T6 PO; +GABA600T12 PO; +HYDR25TA4 PO; +INSU100I14 SQ; -INSU100I19 SQ; -INSU100V28 SQ; +INSU100V7 SQ; -LISI10TA30 PO; +LOSA100T31 PO; +METH2.5T14 PO; -METO50TA16 PO; +OXYC15TA2 PO
[2023-04-01] MEDS ORDERED: methylPREDNISolone SOD SUCC 125 MG/2ML VIAL ONE (02:57)
[2023-04-01] MEDS ORDERED: methylPREDNISolone SOD SUCC 125 MG/2ML VIAL IV ONE (03:00)
[2023-04-01] MEDS ORDERED: ALBUTEROL FS 2.5 MG/3 ML VIAL.NEB NEB ONE (03:00)
[2023-04-01] MEDS ORDERED: IPRATROPIUM NEB FS 0.5 MG/2.5 ML AMPUL.NEB NEB ONE (03:00)
[2023-04-01] MEDS ORDERED: ALBUTEROL FS 2.5 MG/3 ML VIAL.NEB ONE (03:02)
[2023-04-01] MEDS ORDERED: IPRATROPIUM NEB FS 0.5 MG/2.5 ML AMPUL.NEB ONE (03:02)
[2023-04-01 03:24] LABS: BASOPHILS # (AUTO) 0.1 K/uL (0.0-0.2); BASOPHILS % (AUTO) 0.7 % (0.0-2.0); EOSINOPHILS # (AUTO) 0.3 K/uL (0.0-0.7); EOSINOPHILS % (AUTO) 3.3 % (0.0-6.0); HEMATOCRIT 36 % (33-45); HEMOGLOBIN 11.7 g/dL (11.5-14.8); LYMPHOCYTES # (AUTO) 1.9 K/uL (0.8-4.8); LYMPHOCYTES % (AUTO) 19.9 % (20.0-44.0); MEAN CORPUSCULAR HEMOGLOBIN 30 PG (26.0-33.0); MEAN CORPUSCULAR HGB CONC 33 g/dl (31.0-36.0); MEAN CORPUSCULAR VOLUME 92 fL (82-100); MONOCYTES # (AUTO) 0.2 K/uL (0.1-1.30); MONOCYTES % (AUTO) 1.6 % (2.0-12.0); NEUTROPHILS % (AUTO) 74.5 % (43.0-81.0); PLATELET COUNT (AUTO) 335 K/uL (150-450); RED BLOOD CELL COUNT(AUTO) 3.87 MIL/uL (4.0-5.2); RED CELL DISTRIBUTION WIDTH 16.2 % (11.5-15.0); WHITE BLOOD COUNT (AUTO) 9.4 K/uL (4.3-11.0)
[2023-04-01 03:59] LABS: ALANINE AMINOTRANSFERASE 227 U/L (12-78); ALBUMIN 3.3 g/dL (3.4-5.0); ALKALINE PHOSPHATASE 147 U/L (46-116); ASPARTATE AMINOTRANSFERASE 107 U/L (15-37); BILIRUBIN,DIRECT 0.1 mg/dL (0.0-0.2); BILIRUBIN,TOTAL 0.5 mg/dL (0.2-1.0); CALCIUM, SERUM 9.1 mg/dL (8.5-10.1); CARBON DIOXIDE 27 mmol/L (21-32); CHLORIDE 105 mmol/L (98-107); CREATININE 0.9 mg/dL (0.6-1.3); GLUCOSE 281 mg/dL (74-106); POTASSIUM 3.9 mmol/L (3.5-5.1); SODIUM SERUM 137 mmol/L (136-145); TOTAL PROTEIN, SERUM 7.8 g/dL (6.4-8.2); UREA NITROGEN, BLOOD 22 mg/dL (7-18)
[2023-04-01 04:02] LABS: LACTIC ACID 0.8 mmol/L (0.4-2.0)
[2023-04-01] MEDS ORDERED: IOHEXOL-350 100 ML VIAL IV ONE (04:54)
[2023-04-01] MEDS ORDERED: IV NS 0.9% 250 ML IV ONE (04:54)
[2023-04-01] MEDS ORDERED: CT SWABBABLE VALVE TRANS SET 1 EA INFUS.SET MC ONE (04:54)
[2023-04-01] MEDS ORDERED: Z GUARD REMEDY 4 OZ OINT TP PRN (09:00)
[2023-04-01] MEDS ORDERED: DEXTROSE 50%-WATER 50 ML DISP.SYRIN IV PRN (09:00)
[2023-04-01] MEDS ORDERED: IV NS 0.9% 1,000 ML IV PRN (09:00)
[2023-04-01] MEDS ORDERED: MAG HYDROX/AL HYDROX/SIMETH 30 ML UDC PO PRN (09:00)
[2023-04-01] MEDS ORDERED: ONDANSETRON HCL/PF 4 MG/2 ML VIAL IVP PRN (09:00)
[2023-04-01] MEDS ORDERED: MAGNESIUM HYDROXIDE 30 ML UDC PO PRN (09:00)
[2023-04-01] MEDS: ACETAMINOPHEN 325 MG TABLET PO PRN ×2 (10:23→19:47)
[2023-04-01] MEDS: CEFTRIAXONE 1 G in IV D5W 50 ML IV SCH (10:24)
[2023-04-01] MEDS: INSULIN REGULAR, HUMAN 100 UNIT/ML 3 ML VIAL SQ PRN (10:25)
[2023-04-01] MEDS: ENOXAPARIN SODIUM 40 MG/0.4 ML DISP.SYRIN SQ SCH (10:26)
[2023-04-01] MEDS: BLOOD SUGAR DIAGNOSTIC 1 EACH STRIP VI SCH ×3 (12:00→22:00)
[2023-04-01] MEDS: methylPREDNISolone SOD SUCC 40 MG/ML VIAL IV SCH ×2 (12:45→17:04)
[2023-04-01] MEDS ORDERED: MORPHINE SULFATE INJ 4 MG/ML DISP.SYRIN IV PRN (14:30)
[2023-04-01] MEDS: *INSULIN REGULAR(HUMULIN R)HUM 100 UNIT/ML VIAL SQ PRN ×2 (17:11→22:35)
[2023-04-01] MEDS ORDERED: CLONIDINE HCL 0.1 MG TABLET PO PRN (18:30)
[2023-04-01] MEDS ORDERED: INSULIN GLARGINE, 100 UNIT/ML CARTRIDGE SQ SCH (22:00)
[2023-04-02] MEDS: methylPREDNISolone SOD SUCC 40 MG/ML VIAL IV SCH ×2 (00:25→06:37)
[2023-04-02 05:50] LABS: HEMATOCRIT 35 % (33-45); HEMOGLOBIN 11.4 g/dL (11.5-14.8); LYMPHOCYTES # (AUTO) 0.9 K/uL (0.8-4.8); LYMPHOCYTES % (AUTO) 6.3 % (20.0-44.0); MEAN CORPUSCULAR HEMOGLOBIN 30 PG (26.0-33.0); MEAN CORPUSCULAR HGB CONC 33 g/dl (31.0-36.0); MEAN CORPUSCULAR VOLUME 92 fL (82-100); MONOCYTES # (AUTO) 0.2 K/uL (0.1-1.30); MONOCYTES % (AUTO) 1.4 % (2.0-12.0); NEUTROPHILS # (AUTO) 13.2 K/uL (1.8-8.9); NEUTROPHILS % (AUTO) 92.3 % (43.0-81.0); PLATELET COUNT (AUTO) 328 K/uL (150-450); RED BLOOD CELL COUNT(AUTO) 3.76 MIL/uL (4.0-5.2); RED CELL DISTRIBUTION WIDTH 16.4 % (11.5-15.0); WHITE BLOOD COUNT (AUTO) 14.3 K/uL (4.3-11.0)
[2023-04-02 06:18] LABS: CALCIUM, SERUM 9.7 mg/dL (8.5-10.1); MAGNESIUM 2.3 mg/dL (1.8-2.4); PHOSPHORUS 2.6 mg/dL (2.5-4.9); POTASSIUM 4.2 mmol/L (3.5-5.1)
[2023-04-02] MEDS: INSULIN REGULAR, HUMAN 100 UNIT/ML 3 ML VIAL SQ PRN ×2 (06:28→11:54)
[2023-04-02 07:30] VITALS: BP_SYST 152; BP_SYST 158; BP_DIAS 65; BP_DIAS 67; TEMP 98.1; O2SAT 100; O2SAT 96
[2023-04-02] MEDS ORDERED: PRED20TA PO (08:31)
[2023-04-02] MEDS ORDERED: ALBU18HF2 INH (08:31)
[2023-04-02] MEDS ORDERED: methylPREDNISolone SOD SUCC 40 MG/ML VIAL IV SCH (09:00)
[2023-04-02 09:33] LABS: ALBUMIN 3.1 g/dL (3.4-5.0); BILIRUBIN,DIRECT 0.1 mg/dL (0.0-0.2); BILIRUBIN,TOTAL 0.4 mg/dL (0.2-1.0); TOTAL PROTEIN, SERUM 7.4 g/dL (6.4-8.2)
[2023-04-02] MEDS: BLOOD SUGAR DIAGNOSTIC 1 EACH STRIP VI SCH ×2 (09:46→11:54)
[2023-04-02] MEDS: CEFTRIAXONE 1 G in IV D5W 50 ML IV SCH (09:57)
[2023-04-02] MEDS: ENOXAPARIN SODIUM 40 MG/0.4 ML DISP.SYRIN SQ SCH (09:58)
== END 2023-04-02 12:30 | disposition home or self-care (01) | DRG 202 ==
LOC: ER 02:21 → TELE 08:57 → MED 19:50
PROVIDERS: ADMIT Internal Medicine; ATTEND Internal Medicine
DX: J45.901 Unspecified asthma with (acute) exacerbation (principal); E43 Unspecified severe protein-calorie malnutrition; J96.01 Acute respiratory failure with hypoxia; J98.11 Atelectasis; Z20.822 Contact with and (suspected) exposure to COVID-19; E11.9 Type 2 diabetes mellitus without complications; E78.5 Hyperlipidemia, unspecified; E66.9 Obesity, unspecified; Z68.27 Body mass index [BMI] 27.0-27.9, adult; E11.40 Type 2 diabetes mellitus with diabetic neuropathy, unspecified; E89.0 Postprocedural hypothyroidism; Z79.4 Long term (current) use of insulin; Z79.899 Other long term (current) drug therapy; N63.0 Unspecified lump in unspecified breast; G89.4 Chronic pain syndrome; G47.33 Obstructive sleep apnea (adult) (pediatric); E88.09 Other disorders of plasma-protein metabolism, not elsewhere classified; M06.9 Rheumatoid arthritis, unspecified; I10 Essential (primary) hypertension; Z87.891 Personal history of nicotine dependence; R74.01 Elevation of levels of liver transaminase levels
CPT/HCPCS: 36415; 71045-TC; 76700-TC; 80048-TC; 80076-TC; 82962-TC; 83605-TC; 83735-TC; 84100-TC; 84484-TC; 85025-TC; 85378-TC; 87040-TC; 93307-TC; G0378; J0696; J1650; J1815; J2270; J2920; J2930; J7050; J7060; Q9967

== ENCOUNTER 2024-08-26 12:50 | Emergency (ER) | payer MEDICARE, OTHER ==
[~2024-08-26] VITALS: Ht 162.6 cm; Wt 81.6 kg
[~2024-08-26 12:50] MED LIST changes: +ALBU18HF2 INH; -HYDR25TA4 PO; +PRED20TA PO
[2024-08-26] MEDS ORDERED: LIDOCAINE 5% (PATCH) 1 EA PATCH TP ONE (14:45)
[2024-08-26] MEDS ORDERED: ONDANSETRON HCL/PF 4 MG/2 ML VIAL ONE (14:45)
[2024-08-26] MEDS ORDERED: MORPHINE SULFATE INJ 4 MG/ML DISP.SYRIN ONE (14:46)
[2024-08-26] MEDS ORDERED: ACETAMINOPHEN 325 MG TABLET ONE (14:46)
[2024-08-26] MEDS: MORPHINE SULFATE INJ 2 MG/ML DISP.SYRIN IV ONE (14:53)
[2024-08-26] MEDS: LIDOCAINE 5% (PATCH) 1 EA PATCH TP ONE (14:55)
[2024-08-26] MEDS: ONDANSETRON HCL/PF 4 MG/2 ML VIAL IV ONE (14:55)
[2024-08-26] MEDS: ACETAMINOPHEN 325 MG TABLET PO ONE (14:55)
[2024-08-26 14:59] LABS: BASOPHILS # (AUTO) 0.1 K/uL (0.0-0.2); BASOPHILS % (AUTO) 1.2 % (0.0-2.0); EOSINOPHILS % (AUTO) 0.2 % (0.0-6.0); HEMATOCRIT 42 % (33-45); HEMOGLOBIN 14.2 g/dL (11.5-14.8); LYMPHOCYTES # (AUTO) 1.7 K/uL (0.8-4.8); LYMPHOCYTES % (AUTO) 17.5 % (20.0-44.0); MEAN CORPUSCULAR HEMOGLOBIN 31 PG (26.0-33.0); MEAN CORPUSCULAR HGB CONC 34 g/dl (31.0-36.0); MEAN CORPUSCULAR VOLUME 92 fL (82-100); MONOCYTES # (AUTO) 0.2 K/uL (0.1-1.30); MONOCYTES % (AUTO) 2.4 % (2.0-12.0); NEUTROPHILS # (AUTO) 7.6 K/uL (1.8-8.9); NEUTROPHILS % (AUTO) 78.7 % (43.0-81.0); PLATELET COUNT (AUTO) 289 K/uL (150-450); RED BLOOD CELL COUNT(AUTO) 4.63 MIL/uL (4.0-5.2); RED CELL DISTRIBUTION WIDTH 15.4 % (11.5-15.0); WHITE BLOOD COUNT (AUTO) 9.7 K/uL (4.3-11.0)
[2024-08-26] MEDS: IV NS 0.9% 1,000 ML BAG IV ONE ×2 (15:00→19:54)
[2024-08-26 15:45] LABS: CALCIUM, SERUM 10.9 mg/dL (8.5-10.1); CREATININE 2.2 mg/dL (0.6-1.3); POTASSIUM 3.6 mmol/L (3.5-5.1)
[2024-08-26 15:52] LABS: ALBUMIN 3.4 g/dL (3.4-5.0); BILIRUBIN,DIRECT 0.2 mg/dL (0.0-0.2); BILIRUBIN,TOTAL 0.9 mg/dL (0.2-1.0); TOTAL PROTEIN, SERUM 8.6 g/dL (6.4-8.2)
[2024-08-26] MEDS: INSULIN ASPART/LISPRO 100 UNIT/ML CARTRIDGE SQ ONE (18:52)
[2024-08-26 21:15] VITALS: BP 151/72; TEMP 98.1; O2SAT 95
== END 2024-08-26 21:16 | disposition home or self-care (01) ==
LOC: ER 12:54
DX: M25.562 Pain in left knee (principal); M25.561 Pain in right knee; M25.572 Pain in left ankle and joints of left foot; M25.571 Pain in right ankle and joints of right foot; I10 Essential (primary) hypertension; E11.9 Type 2 diabetes mellitus without complications; E78.5 Hyperlipidemia, unspecified; J45.909 Unspecified asthma, uncomplicated; M06.9 Rheumatoid arthritis, unspecified; Z79.4 Long term (current) use of insulin; Z79.52 Long term (current) use of systemic steroids; Z79.899 Other long term (current) drug therapy; Z90.89 Acquired absence of other organs
CPT/HCPCS: 99284; 96374; 96361; 96375; 85025; 80048; 80076; 36415; 82962 ×3; 96372; J2270; J2405; J7030; J1815

== ENCOUNTER 2024-08-30 06:27 | Inpatient (IN) | payer MEDICARE, OTHER ==
[~2024-08-30] VITALS: Ht 165.1 cm; Wt 74.8 kg
[2024-08-30] MEDS: IV NS 0.9% 1,000 ML BAG IV ONE (07:00)
[2024-08-30 07:15] LABS: SITE, VBG VBG - N/A; VBG BASE EXCESS -3.4 mmol/L (-2.0-3.0); VBG COHb 0.6 % (0.5-1.5); VBG HCO3 22.3 mmol/L (22.0-29.0); VBG MetHb 0.5 % (0.5-1.5); VBG O2Hb 35.3 % (0-79); VBG OXYGEN SATURATION 35.7 % (60.0-85.0); VBG PCO2 42.2 mmHg (38.0-54.0); VBG PO2 21.7 mmHg (23.0-48.0); VBG TOTAL HEMOGLOBIN 15.3 G/dL (12.0-16.0)
[2024-08-30 07:15] LABS: BASOPHILS # (AUTO) 0.1 K/uL (0.0-0.2); BASOPHILS % (AUTO) 0.8 % (0.0-2.0); EOSINOPHILS % (AUTO) 0.3 % (0.0-6.0); HEMATOCRIT 43 % (33-45); HEMOGLOBIN 14.5 g/dL (11.5-14.8); LYMPHOCYTES # (AUTO) 1.2 K/uL (0.8-4.8); LYMPHOCYTES % (AUTO) 10.5 % (20.0-44.0); MEAN CORPUSCULAR HEMOGLOBIN 31 PG (26.0-33.0); MEAN CORPUSCULAR HGB CONC 34 g/dl (31.0-36.0); MEAN CORPUSCULAR VOLUME 92 fL (82-100); MONOCYTES # (AUTO) 0.6 K/uL (0.1-1.30); MONOCYTES % (AUTO) 4.9 % (2.0-12.0); NEUTROPHILS # (AUTO) 9.4 K/uL (1.8-8.9); NEUTROPHILS % (AUTO) 83.5 % (43.0-81.0); PLATELET COUNT (AUTO) 270 K/uL (150-450); RED CELL DISTRIBUTION WIDTH 15.6 % (11.5-15.0); WHITE BLOOD COUNT (AUTO) 11.2 K/uL (4.3-11.0)
[2024-08-30 07:28] LABS: SERUM AMMONIA 1 umol/L (11-32)
[2024-08-30 07:38] LABS: CALCIUM, SERUM 11.3 mg/dL (8.5-10.1); CARBON DIOXIDE 24 mmol/L (21-32); CHLORIDE 102 mmol/L (98-107); CREATININE 1.6 mg/dL (0.6-1.3); GLUCOSE 332 mg/dL (74-106); POTASSIUM 3.9 mmol/L (3.5-5.1); SODIUM SERUM 138 mmol/L (136-145); UREA NITROGEN, BLOOD 40 mg/dL (7-18)
[2024-08-30 07:44] LABS: ALANINE AMINOTRANSFERASE 11 U/L (12-78); ALBUMIN 3.1 g/dL (3.4-5.0); ALCOHOL, BLOOD < 3 mg/dL (0-10); ALKALINE PHOSPHATASE 165 U/L (46-116); ASPARTATE AMINOTRANSFERASE 11 U/L (15-37); TOTAL PROTEIN, SERUM 8.1 g/dL (6.4-8.2)
[2024-08-30 07:47] LABS: LACTIC ACID 1.9 mmol/L (0.4-2.0)
[2024-08-30 07:55] LABS: ACETAMINOPHEN <10 ug/ml (10-30); SALICYLATE 1.4 mg/dL (2.8-20.0)
[2024-08-30] MEDS ORDERED: AMLODIPINE BESYLATE 10 MG TABLET ONE (09:10)
[2024-08-30] MEDS ORDERED: LOSARTAN POTASSIUM 50 MG TABLET ONE (09:10)
[2024-08-30] MEDS: LOSARTAN POTASSIUM 50 MG TABLET PO SCH (09:17)
[2024-08-30] MEDS: AMLODIPINE BESYLATE 5 MG TABLET PO ONE (09:17)
[2024-08-30 12:28] LABS: APPEARANCE,URINE CLEAR (CLEAR); BILIRUBIN,URINE 1+ (NEGATIVE); BLOOD, URINE TRACE-INTA Ery/uL (NEGATIVE); COLOR,URINE YELLOW (YELLOW); KETONES,URINE 3+ mg/dL (NEGATIVE); LEUKOCYTE ESTERASE ,URINE NEGATIVE (NEGATIVE); NITRITE, URINE NEGATIVE (NEGATIVE); PROTEIN,URINE 1+ mg/dl (NEGATIVE); UGLUCOSE 3+ mg/dL (NEGATIVE); UROBILINOGEN,URINE 0.2 EU/dL (0.2)
[2024-08-30 12:32] LABS: ADD URINE CULTURE NO; BACTERIA,URINE Few /HPF (None Seen); RBC,URINE 0-2 /HPF (0-2)
[2024-08-30 12:34] LABS: AMPHETAMINE, URINE NEGATIVE (NEGATIVE); BARBITURATE, URINE NEGATIVE (NEGATIVE); BENZODIAZEPINE, URINE NEGATIVE (NEGATIVE); CANNABINOID, URINE NEGATIVE (NEGATIVE); COCCAINE, URINE NEGATIVE (NEGATIVE); OPIATE, URINE NEGATIVE (NEGATIVE); PHENCYCLIDINE SCREEN,URINE NEGATIVE (NEGATIVE)
[2024-08-30 13:25] LABS: APPEARANCE,URINE CLEAR (CLEAR); BILIRUBIN,URINE 1+ (NEGATIVE); BLOOD, URINE TRACE-INTA Ery/uL (NEGATIVE); COLOR,URINE YELLOW (YELLOW); KETONES,URINE 3+ mg/dL (NEGATIVE); LEUKOCYTE ESTERASE ,URINE NEGATIVE (NEGATIVE); NITRITE, URINE NEGATIVE (NEGATIVE); PH,URINE 5.5 (5.0-8.0); PROTEIN,URINE 1+ mg/dl (NEGATIVE); UGLUCOSE 2+ mg/dL (NEGATIVE); UROBILINOGEN,URINE 0.2 EU/dL (0.2)
[2024-08-30] MEDS ORDERED: ACETAMINOPHEN 325 MG TABLET PO PRN (13:30)
[2024-08-30] MEDS ORDERED: GABAPENTIN 300 MG CAPSULE PO PRN (13:30)
[2024-08-30] MEDS ORDERED: MAGNESIUM HYDROXIDE 30 ML UDC PO PRN (13:30)
[2024-08-30] MEDS ORDERED: MAG HYDROX/AL HYDROX/SIMETH 30 ML UDC PO PRN (13:30)
[2024-08-30] MEDS ORDERED: HYDROCODONE/APAP 5/325MG TABLET PO PRN (13:30)
[2024-08-30] MEDS ORDERED: ONDANSETRON HCL/PF 4 MG/2 ML VIAL IVP PRN (13:30)
[2024-08-30 13:37] LABS: ADD URINE CULTURE NO; BACTERIA,URINE Few /HPF (None Seen); RBC,URINE 0-2 /HPF (0-2); WBC,URINE 0-2 /HPF (0-3)
[2024-08-30] MEDS ORDERED: INSULIN REGULAR, HUMAN 100 UNIT/ML 3 ML VIAL SQ PRN (14:00)
[2024-08-30] MEDS ORDERED: DEXTROSE 50%-WATER 50 ML DISP.SYRIN IV PRN ×2 (14:00→19:00)
[2024-08-30] MEDS: IV NS 0.9% 1,000 ML IV PRN (14:19)
[2024-08-30 16:00] VITALS: BP 160/100; TEMP 98.4; O2SAT 97
[2024-08-30] MEDS: METHOTREXATE SODIUM (2.5MG) 2.5 MG TABLET PO SCH (16:27)
[2024-08-30] MEDS: ENOXAPARIN SODIUM 30 MG/0.3 ML DISP.SYRIN SQ SCH (16:27)
[2024-08-30] MEDS: Z GUARD REMEDY 4 OZ OINT TP PRN (16:28)
[2024-08-30] MEDS: BLOOD SUGAR DIAGNOSTIC 1 EACH STRIP VI SCH (17:53)
[2024-08-30] MEDS: *INSULIN REGULAR(HUMULIN R)HUM 100 UNIT/ML VIAL SQ PRN (17:58)
[2024-08-30] MEDS: INSULIN REGULAR, HUMAN 100 UNIT/ML 10 ML VIAL SQ ONE ×2 (18:42→21:45)
[2024-08-30 20:00] VITALS: BP 164/103; TEMP 98.4; O2SAT 97
[2024-08-30] MEDS: CLONIDINE HCL 0.1 MG TABLET PO PRN (20:22)
[2024-08-30 20:28] LABS: INR 1.12 (0.91-1.10); PARTIAL THROMBOPLASTIN TIME 25.3 SEC (24.3-34.3); PROTHROMBIN TIME 11.8 SECS (9.2-11.1)
[2024-08-30 20:40] VITALS: O2SAT 98
[2024-08-30] MEDS: ALBUTEROL FS 2.5 MG/3 ML VIAL.NEB NEB SCH (20:44)
[2024-08-30 20:50] VITALS: O2SAT 100
[2024-08-30] MEDS: BLOOD SUGAR DIAGNOSTIC 1 EACH STRIP IN SCH (21:36)
[2024-08-30] MEDS: INSULIN GLARGINE, 100 UNIT/ML CARTRIDGE SQ SCH (21:38)
[2024-08-30] MEDS ORDERED: INSULIN GLARGINE, 100 UNIT/ML CARTRIDGE SQ SCH (22:00)
[2024-08-31] VITALS (10 sets, daily range): BP systolic 114–148; BP diastolic 61–87; TEMP 98.2–98.6; O2SAT 94–100
[2024-08-31 06:48] LABS: BASOPHILS % (AUTO) 0.3 % (0.0-2.0); EOSINOPHILS % (AUTO) 0.2 % (0.0-6.0); HEMATOCRIT 42 % (33-45); LYMPHOCYTES # (AUTO) 1.7 K/uL (0.8-4.8); LYMPHOCYTES % (AUTO) 15.5 % (20.0-44.0); MEAN CORPUSCULAR HEMOGLOBIN 31 PG (26.0-33.0); MEAN CORPUSCULAR HGB CONC 33 g/dl (31.0-36.0); MEAN CORPUSCULAR VOLUME 92 fL (82-100); MONOCYTES # (AUTO) 0.8 K/uL (0.1-1.30); MONOCYTES % (AUTO) 7.3 % (2.0-12.0); NEUTROPHILS # (AUTO) 8.2 K/uL (1.8-8.9); NEUTROPHILS % (AUTO) 76.7 % (43.0-81.0); PLATELET COUNT (AUTO) 241 K/uL (150-450); RED BLOOD CELL COUNT(AUTO) 4.56 MIL/uL (4.0-5.2); RED CELL DISTRIBUTION WIDTH 15.5 % (11.5-15.0); WHITE BLOOD COUNT (AUTO) 10.7 K/uL (4.3-11.0)
[2024-08-31] MEDS: INSULIN REGULAR, HUMAN 100 UNIT/ML 3 ML VIAL SQ PRN (06:55)
[2024-08-31 07:13] LABS: CALCIUM, SERUM 10.2 mg/dL (8.5-10.1); CREATININE 1.7 mg/dL (0.6-1.3); MAGNESIUM 2.1 mg/dL (1.8-2.4); PHOSPHORUS 2.2 mg/dL (2.5-4.9); POTASSIUM 3.7 mmol/L (3.5-5.1)
[2024-08-31] MEDS ORDERED: LEVOTHYROXINE SODIUM 125 MCG TABLET PO SCH (07:30)
[2024-08-31] MEDS: LEVOTHYROXINE SODIUM 125 MCG TABLET PO SCH (08:24)
[2024-08-31] MEDS: cetrizine 10 MG TABLET PO SCH (08:25)
[2024-08-31] MEDS: FOLIC ACID 1 MG TABLET PO SCH (08:25)
[2024-08-31] MEDS: AMLODIPINE BESYLATE 10 MG TABLET PO SCH (08:29)
[2024-08-31] MEDS ORDERED: LOSARTAN POTASSIUM 50 MG TABLET PO SCH (09:00)
[2024-08-31] MEDS ORDERED: NIFEDIPINE XL 60 MG TAB.ER.24 PO SCH (12:30)
[2024-08-31] MEDS: K PHOS NEUTRAL 250 MG TABLET PO ONE (16:39)
[2024-08-31] MEDS: *INSULIN REGULAR(HUMULIN R)HUM 100 UNIT/ML VIAL SQ PRN (21:55)
[2024-09-01] VITALS (9 sets, daily range): BP systolic 110–146; BP diastolic 75–89; TEMP 97.3–98.4; O2SAT 94–100
[2024-09-01 08:21] LABS: ALBUMIN 2.7 g/dL (3.4-5.0); BILIRUBIN,TOTAL 0.9 mg/dL (0.2-1.0); CREATININE 1.7 mg/dL (0.6-1.3); MAGNESIUM 2.4 mg/dL (1.8-2.4); PHOSPHORUS 3.8 mg/dL (2.5-4.9); POTASSIUM 3.4 mmol/L (3.5-5.1); TOTAL PROTEIN, SERUM 7.3 g/dL (6.4-8.2)
[2024-09-01] MEDS: NIFEdipine XL (30MG) 30 MG TAB PO SCH (08:24)
[2024-09-01] MEDS: POTASSIUM CHLORIDE 10 MEQ TABLET.SA PO ONE (10:25)
[2024-09-01 16:13] LABS: BASOPHILS % (AUTO) 0.5 % (0.0-2.0); EOSINOPHILS % (AUTO) 0.3 % (0.0-6.0); HEMATOCRIT 42 % (33-45); HEMOGLOBIN 14.2 g/dL (11.5-14.8); LYMPHOCYTES % (AUTO) 25.9 % (20.0-44.0); MEAN CORPUSCULAR HEMOGLOBIN 31 PG (26.0-33.0); MEAN CORPUSCULAR HGB CONC 34 g/dl (31.0-36.0); MEAN CORPUSCULAR VOLUME 92 fL (82-100); MONOCYTES # (AUTO) 0.6 K/uL (0.1-1.30); MONOCYTES % (AUTO) 7.4 % (2.0-12.0); NEUTROPHILS # (AUTO) 5.1 K/uL (1.8-8.9); NEUTROPHILS % (AUTO) 65.9 % (43.0-81.0); PLATELET COUNT (AUTO) 217 K/uL (150-450); RED BLOOD CELL COUNT(AUTO) 4.57 MIL/uL (4.0-5.2); RED CELL DISTRIBUTION WIDTH 15.3 % (11.5-15.0); WHITE BLOOD COUNT (AUTO) 7.7 K/uL (4.3-11.0)
[2024-09-01] MEDS: oxyCODONE IR immediate release 5 MG TABLET PO PRN (20:39)
[2024-09-02 07:03] LABS: ALBUMIN 2.5 g/dL (3.4-5.0); BILIRUBIN,TOTAL 0.8 mg/dL (0.2-1.0); CALCIUM, SERUM 9.4 mg/dL (8.5-10.1); CREATININE 1.6 mg/dL (0.6-1.3); MAGNESIUM 2.3 mg/dL (1.8-2.4); POTASSIUM 3.4 mmol/L (3.5-5.1); TOTAL PROTEIN, SERUM 6.6 g/dL (6.4-8.2)
[2024-09-02 07:11] LABS: PTH, INTACT 51 pg/mL (15-65)
[2024-09-02 07:14] LABS: BASOPHILS % (AUTO) 0.4 % (0.0-2.0); EOSINOPHILS % (AUTO) 0.5 % (0.0-6.0); HEMATOCRIT 40 % (33-45); HEMOGLOBIN 13.4 g/dL (11.5-14.8); LYMPHOCYTES # (AUTO) 2.4 K/uL (0.8-4.8); LYMPHOCYTES % (AUTO) 39.5 % (20.0-44.0); MEAN CORPUSCULAR HEMOGLOBIN 31 PG (26.0-33.0); MEAN CORPUSCULAR HGB CONC 33 g/dl (31.0-36.0); MEAN CORPUSCULAR VOLUME 93 fL (82-100); MONOCYTES # (AUTO) 0.4 K/uL (0.1-1.30); MONOCYTES % (AUTO) 5.9 % (2.0-12.0); NEUTROPHILS # (AUTO) 3.3 K/uL (1.8-8.9); NEUTROPHILS % (AUTO) 53.7 % (43.0-81.0); PLATELET COUNT (AUTO) 189 K/uL (150-450); RED BLOOD CELL COUNT(AUTO) 4.28 MIL/uL (4.0-5.2); RED CELL DISTRIBUTION WIDTH 15.2 % (11.5-15.0); WHITE BLOOD COUNT (AUTO) 6.2 K/uL (4.3-11.0)
[2024-09-02 07:45] VITALS: O2SAT 90
[2024-09-02 07:59] VITALS: O2SAT 99
[2024-09-02 08:00] VITALS: BP 116/75; TEMP 97.3; O2SAT 94
[2024-09-02] MEDS: POTASSIUM CHLORIDE 20 MEQ TAB.PRT.SR PO ONE (08:48)
[2024-09-02 08:51] VITALS: BP 116/75
[2024-09-02 13:31] VITALS: O2SAT 99
[2024-09-02] MEDS ORDERED: HYDR-4279 PO (14:06)
== END 2024-09-02 14:45 | disposition home health service (06) | DRG 637 ==
LOC: ER 06:29 → MED 13:08
PROVIDERS: ADMIT Internal Medicine
DX: E11.65 Type 2 diabetes mellitus with hyperglycemia (principal); G92.9 Unspecified toxic encephalopathy; E11.42 Type 2 diabetes mellitus with diabetic polyneuropathy; M06.9 Rheumatoid arthritis, unspecified; E11.22 Type 2 diabetes mellitus with diabetic chronic kidney disease; N18.30 Chronic kidney disease, stage 3 unspecified; I12.9 Hypertensive chronic kidney disease with stage 1 through stage 4 chronic kidney disease, or unspecified chronic kidney disease; Z79.4 Long term (current) use of insulin; G89.4 Chronic pain syndrome; J45.909 Unspecified asthma, uncomplicated; E89.0 Postprocedural hypothyroidism; E87.6 Hypokalemia; M19.90 Unspecified osteoarthritis, unspecified site; M89.8X9 Other specified disorders of bone, unspecified site; Z79.631 Long term (current) use of antimetabolite agent; Z87.891 Personal history of nicotine dependence
CPT/HCPCS: 36415; 71045-TC; 76770-TC; 80048-TC; 80053-TC; 80076-TC; 81001; 82010-TC; 82140-TC; 82550-TC; 82803-TC; 82962-TC; 83605-TC; 83735-TC; 83970; 84100-TC; 84155; 84165; 84439-TC; 84443-TC; 84484-TC; 85025-TC; 85730-TC; 87040-TC; 93307-TC; 94760-TC; 94799-TC; 97110-TC; 97116-TC; 97530-TC; A4223; G0378; G0480; J1650; J1815; J7030; J8610